=== PATIENT | male | born 1995 | race Caucasian/White ===

== ENCOUNTER 2016-05-11 15:51 | Emergency (ER) | payer OTHER ==
[2016-05-11 16:01] VITALS: TEMP 98.4
--- NOTE | 2016-05-11 16:04 | EDPHY ---
H & P Stated Complaint: N/V/D Time Seen by Provider: 05/11/16 16:03 HPI/ROS: CHIEF COMPLAINT: Nausea, vomiting, diarrhea HISTORY OF PRESENT ILLNESS: The patient presents to the ED with a 4 day history of worsening nausea, vomiting and diarrhea. The patient denies melena or hematemesis. The patient has mild diffuse abdominal cramping which is colicky in nature. The patient denies prior history of intestinal illness. The patient denies recent antibiotic use. The patient denies complaints of an upper respiratory infection or other acute medical complaints. REVIEW OF SYSTEMS: A comprehensive 10 point review of systems is otherwise negative aside from elements mentioned in the history of present illness. Source: Patient Exam Limitations: No limitations - Personal History Current Tetanus/Diphtheria Vaccine: Yes Current Tetanus Diphtheria and Acellular Pertussis (TDAP): Yes - Medical/Surgical History Hx Asthma: No Hx Chronic Respiratory Disease: No Hx Diabetes: No Hx Cardiac Disease: No Hx Renal Disease: No Hx Cirrhosis: No Hx Alcoholism: No Hx HIV/AIDS: No Hx Splenectomy or Spleen Trauma: No - Social History Smoking Status: Never smoked - Physical Exam Exam: General Appearance: Alert, no distress Eyes: Pupils equal and round no pallor or injection ENT, Mouth: Mucous membranes moist Respiratory: There are no retractions, lungs are clear to auscultation Cardiovascular: Tachycardic Gastrointestinal: Abdomen is soft and nontender, no masses, bowel sounds normal Neurological: A&O, normal motor function, normal sensory exam, normal cranial nerves Skin: Warm and dry, no rashes Musculoskeletal: Neck is supple nontender Extremities: symmetrical, full range of motion Constitutional: Initial Vital Signs Temperature (C) 36.9 C 05/11/16 15:57 Heart Rate 90 05/11/16 15:57 Respiratory Rate 16 05/11/16 15:57 Blood Pressure 113/71 05/11/16 15:57 O2 Sat (%) 96 05/11/16 15:57 O2 Delivery Mode Room Air Allergies/Adverse Reactions: No Known Allergies Allergy (Unverified 05/11/16 15:57) Home Medications: Medication Instructions Recorded Ondansetron Odt [Zofran Odt] 4 mg PO Q4PRN PRN #20 tab 05/11/16 Medical Decision Making ED Course/Re-evaluation: The patient presents to the emergency department with acute gastroenteritis complicated by moderate dehydration. The patient had an IV established. Patient received 2 L of normal saline and 4 mg of IV Zofran. The patient's electrolytes are noted to be within normal limits. The patient underwent serial examinations in the ED by myself over a 2 hour period. At 6:00 p.m. the patient is feeling much better. He has not had any recurrent vomiting. He is up and ambulatory. The patient's abdominal examination remains benign. I do feel he is having a mild gastroenteritis and now has had correction of his underlying dehydration. He is comfortable being discharged home with a prescription for Zofran. He will take Imodium as needed for diarrhea. The patient will return to the ED for any severe abdominal pain, recurrent symptoms or other concerns. Differential Diagnosis: Differential diagnosis considered includes acute abdominal pain, vomiting, diarrhea, gastroenteritis, dehydration - Data Points Laboratory Results: Laboratory Results 05/11/16 16:21 05/11/16 16:21 Sodium 143 mEq/L mEq/L (134-144) Potassium 3.8 mEq/L mEq/L (3.5-5.2) Chloride 105 mEq/L mEq/L (97-110) Carbon Dioxide 23 mEq/l mEq/l (22-31) Anion Gap 15 mEq/L mEq/L (8-16) BUN 11 mg/dL mg/dL (7-23) Creatinine 0.9 mg/dL mg/dL (0.7-1.3) Estimated GFR > 60 Glucose 78 mg/dL mg/dL (70-100) Calcium 9.6 mg/dL mg/dL (8.5-10.4) Medications Given: Discontinued Medications Sodium Chloride (Ns) 1,000 mls @ 0 mls/hr IV ONCE ONE PRN Reason: Wide Open Stop: 05/11/16 16:12 Last Admin: 05/11/16 16:42 Dose: 1,000 mls Sodium Chloride (Ns) 1,000 mls @ 0 mls/hr IV ONCE ONE PRN Reason: Wide Open Stop: 05/11/16 16:12 Last Admin: 05/11/16 16:42 Dose: 1,000 mls Ondansetron HCl (Zofran) 4 mg IVP EDNOW ONE Stop: 05/11/16 16:12 Last Admin: 05/11/16 16:42 Dose: 4 mg Departure - Departure Disposition: Home, Routine, Self-Care Clinical Impression: Dehydration, Gastroenteritis Condition: Good Instructions: Acute Nausea and Vomiting (ED) Additional Instructions: 1. Zofran as needed for nausea. 2. Take Imodium as needed for diarrhea. 3. Please return to the ED for severe abdominal pain, recurrent vomiting or other concerns. 4. Please follow up with your primary care provider as needed. Referrals: ARIELA CARTER [Primary Care Provider] - As per Instructions Prescriptions: Ondansetron Odt [Zofran Odt] 4 mg PO Q4PRN PRN #20 tab PRN Reason: For Nausea
[2016-05-11] MEDS ORDERED: NS 1,000 ML IV ONE ×2 (16:11)
[2016-05-11] MEDS ORDERED: ONDANSETRON 4 MG/2 ML VIAL IVP ONE (16:11)
[2016-05-11 17:04] LABS: ANION GAP 15 mEq/L (8-16); CALCIUM 9.6 mg/dL (8.5-10.4); CARBON DIOXIDE 23 mEq/l (22-31); CHLORIDE 105 mEq/L (97-110); CREATININE 0.9 mg/dL (0.7-1.3); GLOMERULAR FILTRATION RATE > 60; GLUCOSE 78 mg/dL (70-100); POTASSIUM 3.8 mEq/L (3.5-5.2); SODIUM 143 mEq/L (134-144)
[2016-05-11 18:21] VITALS: BP 116/70; PULSE 85; RESP 14; O2SAT 97
== END 2016-05-11 18:26 | disposition home or self-care (01) ==
DX: K52.9 Noninfective gastroenteritis and colitis, unspecified (principal); E86.0 Dehydration
CPT/HCPCS: 96374; J2405